=== PATIENT | male | born 1985 | race Caucasian/White ===

== ENCOUNTER 2023-10-11 16:18 | Emergency (ER) | payer BC, SELFPAY ==
[2023-10-11 16:25] VITALS: BP 147/89
[2023-10-11 17:54] LABS: % Basophils 0.4 % (0-2); % Eosinophils 1.5 % (0-6); % Immature Granulocytes 0.3 % (0-0.5); % Lymphocytes 19.2 % (20.5-51.1); % Monocytes 9.7 % (1.7-9.3); % Neutrophils 68.9 % (42.2-75.2); Absolute Eosinophils 0.2 10^3/uL (0-0.7); Absolute Lymphocytes 2.1 10^3/uL (1.2-3.4); Absolute Neutrophils 7.4 10^3/uL (1.4-6.5); Hemoglobin 14.5 g/dL (13.0-18.0); Mean Corp Hgb Conc. 36.3 g/dL (33.0-37.0); Mean Corpuscular Hgb 30.7 pg (27.0-31.0); Mean Corpuscular Volume 84.6 fL (80.0-94.0); Mean Platelet Volume 9.9 fL (7.4-10.4); Nucleated Red Blood Cells % 0 % (-); Platelet Count 190 10^3/uL (130-400); Red Blood Cell Count 4.73 10^6/uL (4.70-6.10); Red Cell Dist. Width 12.3 % (11.5-14.5); White Blood Cell Count 10.7 10^3/uL (4.8-10.8)
[2023-10-11 18:13] LABS: ALT (SGPT) 21 U/L (0-50); AST (SGOT) 19 U/L (17-59); Albumin 4.4 g/dl (3.5-5.0); Alkaline Phosphatase 51 U/L (38-126); Blood Urea Nitrogen 10 mg/dl (9-20); Calcium 9.6 mg/dl (8.4-10.2); Carbon Dioxide 27 mmol/L (22-30); Chloride 103 mmol/L (98-107); Glucose 114 mg/dl (70-99); Potassium 3.9 mmol/L (3.5-5.1); Sodium 137 mmol/L (135-145); Total Bilirubin 1.1 mg/dl (0.2-1.3); Total Protein 7.2 g/dl (6.3-8.2); eGFR > 60.00
--- NOTE | 2023-10-11 18:17 | ED.GENMED ---
History of Present Illness
General
Chief Complaint: Musculo-Skeletal Complaint
Source: patient
Exam Limitations: none
Time Seen by Provider: 10/11/23 17:57
History of Present Illness
History of Present Illness:
This is a 38 year old male that comes in with c/o right knee pain. States that on his right knee hit the dash after going over a bump. ON Friday he noticed that the knee was sore but he went to work. States that throughout the day his knee
started to hurt more. States while at work he then hit the knee with a hammer and know the knee is swollen and painful. States that he had a fever of 100.2 at home and was a little nauseated. Denies any chills, chest pain, SOB, abd pain, vomiting,
diarrhea, headache, dizziness, urinary burning. Denies any cough
Past History
Past History
ED Past Medical History: None; Negative Asthma, HTN, Hypercholesterolemia or NIDDM
ED Past Surgical History: None
Social History
Tobacco: Non-smoker
Alcohol: Occasional
Personal:
Living: with family
Employment: Employed
Review of Systems
Review of Systems
All Other Systems: ROS reviewed and negative except as documented in HPI and ROS
Constitutional: Reports fever; Denies chills
EENT: Reports no symptoms
Respiratory: Reports no symptoms; Denies cough or trouble breathing
Cardiac: Reports no symptoms; Denies chest pain
ABD/GI: Reports nausea; Denies abdominal pain, vomiting or diarrhea
: Reports no symptoms; Denies dysuria, frequency or urgency
Musculoskeletal: Reports joint pain (Right knee swelling)
Skin: Reports no symptoms
Neurological: Reports no symptoms; Denies dizzy or headache
Psychiatric: Reports no symptoms
Phy Exam
General Physical Exam
General Presentation: well appearing and no apparent distress
General age: appears stated age
General Skin: warm and dry
General Habitus: normal
General Mental: alert
General Hydration: appears well hydrated
ENT Exam
ENT Exam: TM's normal, pharynx normal and neck supple
Eye Exam
Eye Exam: EOMI
Cardiovascular Exam
Cardiovascular Exam: regular rate/rhythm, no edema, no murmur and normal peripheral pulses
Pulmonary Exam
Pulmonary Exam: lungs clear, no respiratory distress, no rales, chest non tender, no crackles, no rhonchi, no wheezing and no cough
Gastrointestinal Exam
Gastrointestinal Exam: normal bowel sounds, non tender, soft, no organomegaly, no pulsatile mass and non distended
Musculoskeletal Exam
Musculoskeletal Exam: full ROM and other (Swelling with very slight redness of the anterior knee. Tender to palpation on the medial distal knee and lateral proximal knee. Patient able to flex knee with slight discomfort)
Skin Exam
Skin Exam: normal color, warm/dry, no petechia and other (Very slight redness of the anterior knee)
Psychiatric Exam
Psychiatric Exam: normal mood/affect
Course
Orders/Labs/Results
Orders:
Orders
10/11/23 17:45
Knee, Right 4 or More Views [CR Knee- Right 4 Or More View*] Urgent
Comment:
Reason For Exam: injury and swelling
10/11/23 17:48
Complete Blood Count/With Diff Urgent
Comprehensive Metabolic Panel Urgent
10/11/23 18:30
Marcial Wrap Right-Treatment ONCE
10/11/23 18:32
Cephalexin Monohydrate [Keflex] 500 mg PO NOW STA
10/11/23 18:46
Lactic Acid Urgent
Blood Culture Q30M
S[facility]NC[facility]Z Source: Blood/Venous
Specimen Description:
Blood Culture Q30M
S[facility]NC[facility]Z Source: Blood/Venous
Specimen Description:
Abnormal Lab Results
10/11/23
17:48
Absolute Neuts (auto) 7.4 H 10^3/uL
(1.4-6.5)
Absolute Monos (auto) 1.0 H 10^3/uL
(0.1-0.6)
Lymphocytes % 19.2 L %
(20.5-51.1)
Monocytes % 9.7 H %
(1.7-9.3)
Glucose 114 H mg/dl
(70-99)
10/11/23 17:48
10/11/23 17:48
Glucose nonfasting. Otherwise labs normal. Lactic acid normal at 1.2
Vital Signs
Initial and Last Documented VS:
Initial Vital Signs
Temp Pulse Resp BP Pulse Ox
99.3 F 102 18 147/89 97
10/11/23 16:25 10/11/23 16:25 10/11/23 16:25 10/11/23 16:25 10/11/23 16:25
Last Documented Vital Signs
Temp Pulse Resp BP Pulse Ox
99.3 F 102 18 147/89 97
10/11/23 16:25 10/11/23 16:25 10/11/23 16:25 10/11/23 16:25 10/11/23 16:25
MDM/Problems Addressed
Differential Diagnosis Includes:
Right knee contusion, Knee fracture
MDM/Problems Addressed:
This is a 38 year old male that comes in with c/o right knee pain. States that on he hit the dash board with his knee and then on Friday he hit the knee with a hammer.
Will check labs and x-ray.
back into see patient. Explained that his blood work is normal. His X-ray is negative for any fracture or effusion. Will give patient an marcial to use on the knee to help decrease the swelling. Due to patient having a fever and slight redness of the
knee with start on Keflex for 7 days. Patient to follow up with the family doctor. Return with any concerns.
Chronic conditions affecting care:
NA
Acute Exacerbation and/or Progression of Chronic Illness:
NA
*Radiology
Radiology exam reviewed: radiology read reviewed (Right knee- No acute osseous abnormality. Some prepatellar soft tissue swelling without air or air-fluid level. )
*Pulse Oximetry
Patient hypoxic: no
*EKG
Interpreted by ED Provider?: NA
Rate: EKG- N/A
*Web Content Director Interpretation
Rate: Web Content Director- N/A
*Critical Care Note
Total Time (30-74mins, 75-104mins- exclusive of procedures): Not Applicable
ED Attending Note
-
Portions of this chart may have been created with voice recognition software.� Occasional wrong word or��sound alike� substitutions may have occurred due to the inherent limitations of voice recognition software.
Discharge Plan
Departure
Patient Disposition: Home (Routine Discharge)
Date of Disposition: 10/11/23
Time of Disposition: 18:35
Patient with high blood pressure during this ER visit?: Yes
Condition: Good
Covid-19: Not Applicable
Discharge Problem:
Acute pain of right knee
Instructions: Knee Pain (DC), BLOOD PRESSURE
Prescriptions:
New
cephalexin 500 mg capsule
500 mg PO BID 7 Days Qty: 13 0RF
Referrals:
NONE,* [Family Provider] -
Activity Restrictions/Additional Instructions:
As discussed,your blood work is all normal. Your x-ray is negative for any fractures or effusion. Please use the marcial when you are up waling around as this will help decrease the swelling. You have also been given an antibiotic for the next 7 days
as this will treat any infection since the knee is slightly warm and red. You have been given your first dose here and a prescription has been sent to your Pharmacy. IF YOU HAVE INCREASED REDNESS OR YOU HAVE ANY POTHER CONCERNS PLEASE RETURN TO THE
EMERGENCY ROOM,.
Discharge Date and Time
Print Language: ITALIAN
[2023-10-11 18:50] VITALS: BP 138/70
[2023-10-11] MEDS: KEFLEX 500 MG PO (19:00)
[2023-10-11 19:13] LABS: Lactic Acid 1.2 mmol/L (0.7-2.0)
== END 2023-10-11 18:50 | disposition home or self-care (01) ==
LOC: EMR 16:18
PROVIDERS: Clinical Nurse Specialist Family Health; Emergency Medicine; EMERGENCY PHYSICIAN Student in an Organized Health Care Education/Training Program
DX: M25.561 Pain in right knee (principal)
CPT/HCPCS: 99283; 73564; 80053; 83605; 85025; 87040